=== PATIENT | male | born 2000 | race Caucasian/White ===

== ENCOUNTER 2021-10-15 05:24 | Emergency (ER) | payer OTHER ==
[~2021-10-15] VITALS: Ht 182.9 cm; Wt 122.5 kg
[2021-10-15 05:55] LABS: URINE BILIRUBIN NEGATIVE (Negative); URINE BLOOD NEGATIVE (Negative); URINE CLARITY CLEAR; URINE COLOR YELLOW; URINE GLUCOSE-RANDOM NEGATIVE (Negative); URINE KETONES NEGATIVE (Negative); URINE LEUKOCYTES-REFLEX NEGATIVE (Negative); URINE NITRITE-REFLEX NEGATIVE (Negative); URINE PROTEIN 1+ (Negative); URINE SPECIFIC GRAVITY >= 1.030 (1.005-1.030); URINE UROBILINOGEN 0.2 E.U./dl (0.2-1.0)
[2021-10-15 06:04] LABS: AMP/METHAMP Negative (Negative); BARBITURATES Negative (Negative); BENZODIAZEPINES Negative (Negative); COCAINE Negative (Negative); METHADONE Negative (Negative); OPIATES Negative (Negative); PCP Negative (Negative); THC POSITIVE (Negative)
[2021-10-15 06:25] LABS: CALCIUM 8.3 mg/dL (8.5-10.1); POTASSIUM 3.4 mmol/L (3.5-5.1)
[2021-10-15 06:29] LABS: ALBUMIN 3.6 g/dL (3.4-5.0); TOTAL BILIRUBIN 0.2 mg/dL (<0.1-1.0); TOTAL PROTEIN 7.2 g/dL (6.4-8.2)
[2021-10-15 06:52] VITALS: BP 132/68
== END 2021-10-15 06:53 | disposition home or self-care (01) ==
LOC: M.ERS 05:24
PROVIDERS: Emergency Medicine
DX: R41.82 Altered mental status, unspecified (principal)